=== PATIENT | female | born 1950 | race Two or more races ===

== ENCOUNTER 2021-10-12 15:19 | Inpatient (IN) | payer MEDICARE, OTHER ==
[~2021-10-12] VITALS: Ht 162.6 cm; Wt 78.3 kg
[2021-10-12] MEDS ORDERED: ASPirin 81 mg TAB PO ONE (16:00)
[2021-10-12] MEDS ORDERED: ONDANSETRON HCL 4 MG/2 ML VIAL IV ONE (16:00)
[2021-10-12] MEDS ORDERED: MORPHINE SULFATE 4 MG/ML SYR/VIAL IV ONE (16:00)
[2021-10-12 16:29] LABS: Basophils # (auto) 0 10 ^3/uL (0-0.2); Basophils % (auto) 0.5 % (0.0-2.0); Eosinophils # (auto) 0.1 10 ^3/uL (0-0.8); Eosinophils % (auto) 2.6 % (0.0-7.0); Hematocrit 36.9 % (36.0-46.0); Hemoglobin 12.3 g/dL (12.2-16.2); Lymphocytes # (auto) 0.9 10 ^3/uL (0.4-5.4); Lymphocytes % (auto) 17.5 % (10.0-50.0); Mean Corpuscular Hemoglobin 30.2 pg (28.0-32.0); Mean Corpuscular Hgb Conc. 33.2 g/dL (32.0-36.0); Mean Corpuscular Volume 90.9 fL (80.0-100.0); Monocytes # (auto) 0.5 10 ^3/uL (0-1.3); Monocytes % (auto) 9.8 % (0.0-12.0); Neutrophils # (auto) 3.6 10 ^3/uL (1.6-8.6); Neutrophils % (auto) 69.6 % (37.0-80.0); Red Blood Cells 4.06 10^6/uL (4.0-5.20); Red Cell Distribution Width 13.9 % (11.8-14.3); White Blood Cell 5.1 10^3/uL (4.4-10.8)
[2021-10-12 16:46] LABS: Albumin 3.7 g/dL (3.4-5.0); BUN/Creatinine Ratio 16.2; Calcium 9.2 mg/dL (8.5-10.1); Magnesium 2.4 mg/dL (1.6-2.6)
[2021-10-12 16:49] LABS: Bilirubin, Total 0.4 mg/dL (0.2-1.0); Total Protein 7.5 g/dL (6.4-8.2)
[2021-10-12 17:04] LABS: Potassium 2.8 mmol/L (3.5-5.1)
[2021-10-12] MEDS ORDERED: POTASSIUM CHL 20 Meq TABLET PO ONE (17:15)
[2021-10-12] MEDS ORDERED: POTASSIUM CHL 20MEQ/100ML 100 ML IV ONE (17:15)
[2021-10-12 17:33] LABS: INR 1.02 (0.9-1.15); Partial Thromboplastin Time 29.1 sec (23.6-33.0)
[2021-10-12] MEDS ORDERED: ACETAMINOPHEN 325 MG TAB PO PRN (20:45)
[2021-10-12] MEDS ORDERED: MORPHINE SULFATE INJ 2 MG/ml SYRG IV PRN (20:45)
[2021-10-12] MEDS ORDERED: ONDANSETRON HCL 4 MG/2 ML VIAL IV PRN (20:45)
[2021-10-12] MEDS ORDERED: DEXTROSE (50%) 50ML SYRG IV PRN (20:45)
[2021-10-12] MEDS ORDERED: NITROGLYCERIN 0.4 MG SL TAB SL PRN (20:45)
[2021-10-12] MEDS ORDERED: ATORVASTATIN 20 MG TAB PO SCH (22:00)
[2021-10-13] MEDS: SODIUM CHLORIDE 0.9% 1,000 ML IV SCH ×2 (00:45→09:37)
[2021-10-13] MEDS: METOPROLOL TARTRATE 25 MG TAB PO SCH ×2 (00:46→09:32)
[2021-10-13] MEDS: ENOXAPARIN SOD 80 MG/0.8ML SYRINGE SC SCH ×2 (00:46→09:30)
[2021-10-13] MEDS: ACCU-CHEK COMFORT CURVE STRIP VI SCH ×4 (00:47→17:28)
[2021-10-13 03:17] VITALS: BP 105/52
[2021-10-13] MEDS ORDERED: GABA300C10 PO (04:56)
[2021-10-13] MEDS ORDERED: QUET100T47 PO (04:56)
[2021-10-13] MEDS ORDERED: IBUP800T26 PO (04:56)
[2021-10-13] MEDS ORDERED: CLOT1PAK (04:56)
[2021-10-13] MEDS ORDERED: ZIPR60CA7 PO (04:56)
[2021-10-13] MEDS ORDERED: SIMV-8 PO (04:56)
[2021-10-13] MEDS ORDERED: CYCL-614 PO (04:56)
[2021-10-13] MEDS ORDERED: FUR20T PO (04:56)
[2021-10-13] MEDS ORDERED: LURA1TAB PO (04:56)
[2021-10-13] MEDS ORDERED: METH2.5T PO (04:56)
[2021-10-13] MEDS ORDERED: ALEN70TA74 PO (04:56)
[2021-10-13] MEDS ORDERED: LAMO100T44 PO (04:56)
[2021-10-13] MEDS ORDERED: [UNRECOGNIZED DRUG - CODE] TOP (04:56)
[2021-10-13] MEDS ORDERED: TRAZ100T3 PO (04:56)
[2021-10-13] MEDS ORDERED: MEMA1TAB5 PO (04:56)
[2021-10-13] MEDS ORDERED: TRAM50TA2 PO (04:56)
[2021-10-13] MEDS ORDERED: LID35TP TOP (04:56)
[2021-10-13] MEDS ORDERED: LEVO100T8 PO (04:56)
[2021-10-13 05:00] VITALS: BP 102/57
[2021-10-13] MEDS: InsuLIN REG 1unit/0.01ml Soln (100units/ml) SC SCH ×4 (05:41→17:28)
[2021-10-13 06:30] LABS: Basophils # (auto) 0 10 ^3/uL (0-0.2); Basophils % (auto) 0.9 % (0.0-2.0); Eosinophils # (auto) 0.2 10 ^3/uL (0-0.8); Eosinophils % (auto) 3.4 % (0.0-7.0); Hematocrit 34.5 % (36.0-46.0); Hemoglobin 11.5 g/dL (12.2-16.2); Lymphocytes # (auto) 0.9 10 ^3/uL (0.4-5.4); Lymphocytes % (auto) 20.7 % (10.0-50.0); Mean Corpuscular Hemoglobin 30.4 pg (28.0-32.0); Mean Corpuscular Hgb Conc. 33.3 g/dL (32.0-36.0); Mean Corpuscular Volume 91.3 fL (80.0-100.0); Monocytes # (auto) 0.4 10 ^3/uL (0-1.3); Monocytes % (auto) 9.5 % (0.0-12.0); Neutrophils % (auto) 65.5 % (37.0-80.0); Nucleated Red Blood Cells % 0.1 %; Red Blood Cells 3.77 10^6/uL (4.0-5.20); Red Cell Distribution Width 13.8 % (11.8-14.3); White Blood Cell 4.5 10^3/uL (4.4-10.8)
[2021-10-13 06:45] LABS: Calcium 8.3 mg/dL (8.5-10.1)
[2021-10-13 06:48] LABS: BUN/Creatinine Ratio 16.2
[2021-10-13 09:00] VITALS: BP 116/60
[2021-10-13 09:53] VITALS: BP 116/60
[2021-10-13] MEDS ORDERED: LISINOPRIL 10 MG TAB PO SCH (10:00)
[2021-10-13] MEDS ORDERED: DOCUSATE SOD 100 MG CAP PO SCH (10:00)
[2021-10-13] MEDS ORDERED: CLOPIDOGREL BISULFATE 75 MG TAB PO SCH (10:00)
[2021-10-13 13:00] VITALS: BP_SYST 100; BP_SYST 101; BP_DIAS 49; BP_DIAS 51
[2021-10-13] MEDS: POTASSIUM EFFERVESENT TAB 25 MEQ PO SCH ×2 (14:08→18:06)
[2021-10-13 15:38] VITALS: BP 100/49
== END 2021-10-13 18:00 | disposition home health service (06) | DRG 313 ==
LOC: ER 15:19 → TELE 20:49 → TELE-WESTW 23:32
PROVIDERS: ADMIT Hospitalist; ATTEND Internal Medicine
DX: R07.9 Chest pain, unspecified (principal); E87.6 Hypokalemia; E11.22 Type 2 diabetes mellitus with diabetic chronic kidney disease; I12.9 Hypertensive chronic kidney disease with stage 1 through stage 4 chronic kidney disease, or unspecified chronic kidney disease; Z20.822 Contact with and (suspected) exposure to COVID-19; F31.9 Bipolar disorder, unspecified; F41.9 Anxiety disorder, unspecified; E03.9 Hypothyroidism, unspecified; E78.5 Hyperlipidemia, unspecified; N18.9 Chronic kidney disease, unspecified; Z83.3 Family history of diabetes mellitus; Z82.49 Family history of ischemic heart disease and other diseases of the circulatory system; Z85.41 Personal history of malignant neoplasm of cervix uteri; Z90.49 Acquired absence of other specified parts of digestive tract; I25.2 Old myocardial infarction; Z85.118 Personal history of other malignant neoplasm of bronchus and lung; Z88.6 Allergy status to analgesic agent; Z79.84 Long term (current) use of oral hypoglycemic drugs
CPT/HCPCS: 36415; 71046; 80048; 80053; 80061; 82962; 83735; 83880; 84484; 85025; 85610; 85730; 93005; 93306; 96365; 96375; 99291; G0378; J2405; J3480